=== PATIENT | female | born 1965 | race Caucasian/White ===

== ENCOUNTER 2016-05-22 11:43 | Inpatient (IN) ==
[2016-05-22 12:32] LABS: MANUAL DIFF NEEDED? NO
[2016-05-22 12:36] LABS: BASO% 0.3 % (0.0-0.8); EOS# 0.17 X1000 (0.0-0.7); EOS% 2.4 % (0.0-10.0); HEMATOCRIT 37.2 % (37.0-47.0); HEMOGLOBIN 12.2 g/dL (12.0-16.0); LYMPH# 2.95 X1000 (1.2-3.4); MCH 30.7 PG (27-31); MCHC 32.8 g/dL (33-37); MCV 93.7 FL (81-99); MONO# 0.42 X1000 (0.11-0.59); MONO% 5.8 % (1.7-9.3); NEUT% 50.5 % (42.2-75.2); PLT 193 X1000 (130-400); RBC 3.97 XMIL (4.2-5.4)
[2016-05-22 12:54] LABS: URINE CULTURE NEEDED? NO; URINE MICRO REVIEW NEEDED? NO; URINE SOURCE CATH
[2016-05-22 13:00] LABS: BILIRUBIN URINE NEGATIVE (NEGATIVE); BLOOD URINE NEGATIVE (NEGATIVE); COLOR YELLOW; GLUCOSE URINE NEGATIVE (NEGATIVE); LEUKOCYTES URINE NEGATIVE (NEGATIVE); NITRITE URINE NEGATIVE (NEGATIVE); PH URINE 5.5; PROTEIN URINE NEGATIVE (NEGATIVE); SP GRAVITY URINE 1.015; TURBIDITY URINE CLEAR (CLEAR); UROBILINOGEN URINE NORMAL (NORMAL)
[2016-05-22 13:01] LABS: UR EPITHELIAL CELLS <10 /HPF (<10); URINE BACTERIA NEGATIVE /HPF; URINE RBC <10 /HPF (<10); URINE WBC <10 /HPF (<10)
--- NOTE | 2016-05-22 13:16 | Diag Imaging Result Document ---
PROCEDURE NAME: HEAD W/O CONTRAST - 05/22/2016 CT BRAIN WITHOUT CONTRAST. COMPARISON: Compared to 10/15/2014. FINDINGS: There are postsurgical changes from a left frontoparietal craniotomy and there is encephalomalacia in the left frontoparietal region. No parenchymal hemorrhage. No epidural or subdural hematoma. No subarachnoid hemorrhage. Mild prominence to the right lateral ventricle likely related to the encephalomalacia on the left. No sinus opacification. No air-fluid levels. IMPRESSION: 1. No hemorrhage. 2. Left frontoparietal encephalomalacia. A preliminary report was given at 1:01 p.m. MTDD
[2016-05-22 13:24] LABS: UR AMPHETAMINES QUAL NONE DETECTED (NONE DETECT); UR BARBITUATES QUAL NONE DETECTED (NONE DETECT); UR BENZODIAZEPIN QUAL NONE DETECTED (NONE DETECT); UR CANNABINOIDS QUAL NONE DETECTED (NONE DETECT); UR COCAINE QUAL NONE DETECTED (NONE DETECT); UR METHADONE QUAL NONE DETECTED (NONE DETECT); UR OPIATES QUAL NONE DETECTED (NONE DETECT); UR OXYCODONE QUAL PRESUMPTIVE POSITIVE (NONE DETECT); UR PCP QUAL NONE DETECTED (NONE DETECT)
[2016-05-22 13:51] LABS: AGAP 14; ALBUMIN 3.5 g/dL (3.5-5.0); ALKALINE PHOSPHATASE 73 U/L (32-104); BUN 9 mg/dL (8-22); CALCIUM 8.8 mg/dL (8.8-10.2); CHLORIDE 99 mmol/L (98-107); COSMO 282; GOT 12 U/L (10-30); GPT 17 U/L (10-36); MAGNESIUM 1.7 mg/dL (1.5-2.7); POTASSIUM 3.7 mmol/L (3.5-5.1); SODIUM 138 mmol/L (136-145); TCO2 25 mmol/L (25-35); TOTAL BILIRUBIN 0.37 mg/dL (0.20-1.00); TOTAL PROTEIN 6.5 g/dL (6.3-8.3)
--- NOTE | 2016-05-22 13:51 | EKG Report ---
Test Performed on : 05/22/2016 11:48:39 AM Test Reason : ED. Not ordered in [place] Blood Pressure : / mmHG Vent. Rate : 062 BPM Atrial Rate : 062 BPM P-R Int : 156 ms QRS Dur : 092 ms QT Int : 438 ms P-R-T Axes : 062 031 -05 degrees QTc Int : 444 ms Normal sinus rhythm. Normal ECG No previous ECGs available Unconfirmed Result
[2016-05-22] MEDS ORDERED: KEPPRA 1,000 MG in NS 100 ML IV ONE (14:36)
--- NOTE | 2016-05-22 14:42 | PROVIDER DOCUMENTATION ---
This chart was entered by Lesvia Phelps Scribe, acting as scribe for Nataly Thomson Jr, MD. HPI-Neurological Disorder - General Stated Complaint: new onset seizure Time Seen by Provider: 05/22/16 11:47 Source: family (son) Allergies/Adverse Reactions: Patient Allergies Allergy/AdvReac Type Severity Reaction Status Date / Time meprobamate Allergy Unknown Verified 05/22/16 12:25 - History of Present Illness-Neuro Nature of Presenting Problem: Pt is 50 y/o F presents to the ED with new onset of seizure. 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 Pt's son states Pt jose up on L side of body. Pt's son states the symptoms lasted for 45 seconds. Pt's son states Pt had a massive brain bleed 1 year ago. Pt's son states bleed gave Pt R side weakness. Pt's son states it was a brain bleed and clot in brain. Headache Location: denies: frontal, temporal, occipital, parietal, global Severity: reports: moderate Onset/Duration: reports: 1/2 hour ago Timing: reports: gone now Context: reports: seizure activity Character of Altered Mental Status: reports: unresponsive, other (L side jose up ) Any recent trauma/injury?: reports: none New weakness or altered sensation location:: reports: [place] Cognitive Baseline: other (alert) Gait Baseline: uses a cane Associated Symptoms: reports: seizures. denies: short of breath, headache, decreased ability to walk or stand, fainting, dizziness, confusion, chest pain, neck/back pain, fatigue, fever/chills, insomnia, loss of consciousness, muscle spasms, nausea, numbness in legs/feet, paresthesia, diaphoretic, ringing in ears , sleepy, slurred speech, tingling in legs/feet, trouble walking, vomiting, vision changes, weakness Similar Symptoms Previously?: No Recently seen or treated by another doctor?: No - Seizure First time to have a seizure?: Yes Witnessed seizure?: Yes How many seizure episodes?: 1 Duration of episode? (mins): 0 (45 seconds ) Approximate time seizures began?: 11:30 Episode Frequency: no prior episodes Status Epilepticus: No Character of Seizure: reports: other (jose up on L side). denies: incontinent of urine, incontinent of stool, stopped breathing Post-ictal Symptoms: reports: confusion Seizure related injury: none Review of Systems - Adult - REVIEW OF SYSTEMS - ADULT Constitutional: reports: no symptoms reported Eyes: reports: no symptoms reported Ears, Nose, Mouth & Throat: reports: no symptoms reported Cardiovascular: reports: no symptoms reported Respiratory: reports: no symptoms reported Gastrointestinal: reports: no symptoms reported Genitourinary: reports: no symptoms reported Musculoskeletal: reports: no symptoms reported Integumentary: reports: no symptoms reported Neurological: reports: seizure. denies: dizziness/vertigo, headache/migraines Psychiatric: reports: no symptoms reported Endocrine: reports: no symptoms reported Hematologic/Lymphatic: reports: no symptoms reported Allergic/Immunologic: reports: no symptoms reported All Other Systems: Reviewed and Negative Past History - Adult - PAST MEDICAL HISTORY-ADULT Review of Records: reports: Nursing Assessment Review, Medications Reviewed, Social history reviewed & non-contributory. Major Childhood Illnesses: reports: denies history Cardiovascular: reports: denies history Respiratory: reports: denies history Gastrointestinal: reports: denies history Obstetrical/Gynecological: reports: denies history Genitourinary: reports: denies history Musculoskeletal: reports: denies history Neurological: reports: denies history Endocrine/Immune: reports: denies history Other Conditions: reports: denies history - PRIOR SURGERIES/PROCEDURES Surgical/Procedure History: reports: reviewed, not pertinent - IMMUNIZATION STATUS Childhood Immunizations: See Nurse Assessment Flu Vaccine: See Nurse Assessment - FAMILY HISTORY Family History: reviewed, not pertinent - SOCIAL HISTORY Smoking: denies Substance Use: denies Living Situation: family Physical Exam- Neurological - Physical Exam-Neuro Initial Vital Signs Reviewed: Yes General Appearance: appears well, alert, no apparent distress Eye Exam: bilateral eye: normal inspection, PERRL, EOMI HENMT: normocephalic/atraumatic, moist mucous membranes, normal ENT inspection, TMs normal, pharynx normal, other (top dentures) Head Injury: no evidence of injury Neck: non-tender, full range of motion, supple, normal inspection Respiratory: chest non-tender, lungs clear, normal breath sounds, no pleuratic chest pain, no respiratory distress, no accessory muscle use Cardiovascular: normal peripheral pulses, no edema, no gallop, no JVD, no murmur , bradycardia Abdominal Exam: normal bowel sounds, non tender, soft, no organomegaly, no pulsatile mass Lymphatic: no adenopathy Extremity: normal range of motion, non-tender, no calf tenderness, normal capillary refill, 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 Exam: normal hearing, abnormal speech (aphasia due to prior stroke) Coordination/Gait: abnormal gait Motor/Sensory: weak motor strength RUE Neurologic: grossly normal Integumentary: normal color, normal turgor, warm/dry Psych/Mental Status: normal mood/affect Progress - PLAN OF CARE/RESULTS Progress/Plan/Lab Results: Vital Signs - 8 hr 05/22/16 12:14 Temperature 97.3 F L Pulse Rate 57 L Respiratory Rate 18 Blood Pressure 130/67 O2 Sat by Pulse Oximetry 100 Laboratory Results - last 24 hr 05/22/16 05/22/16 05/22/16 12:10 12:35 12:35 WBC 7.19 RBC 3.97 L Hgb 12.2 Hct 37.2 MCV 93.7 MCH 30.7 MCHC 32.8 L RDW Std Deviation 12.9 Plt Count 193 MPV 11.0 H Neut % (Auto) 50.5 Lymph % (Auto) 41.0 Knox % (Auto) 5.8 Eos % (Auto) 2.4 Baso % (Auto) 0.3 Neut # (Auto) 3.63 Lymph # (Auto) 2.95 Knox # (Auto) 0.42 Eos # (Auto) 0.17 Baso # (Auto) 0.02 Sodium Potassium Chloride Carbon Dioxide Anion Gap BUN Creatinine Estimated GFR/1.73 m2 BUN/Creatinine Ratio Glucose Calculated Osmolality Calcium Magnesium Total Bilirubin AST ALT Alkaline Phosphatase Total Protein Albumin Globulin Albumin/Globulin Ratio Urine Source CATH Urine Color YELLOW Urine Turbidity CLEAR Urine pH 5.5 Ur Specific Mallie 1.015 Urine Protein NEGATIVE Ur Glucose (Stick) NEGATIVE Ur Ketones (Stick) NEGATIVE Urine Blood NEGATIVE Urine Nitrite NEGATIVE Urine Bilirubin NEGATIVE Urobilinogen Dipstick NORMAL Urine Leukocytes NEGATIVE Urine WBC (Auto) <10 Urine RBC (Auto) <10 U Epithel Cells (Auto) <10 Urine Bacteria (Auto) NEGATIVE Urine Opiates Screen NONE DETECTED Ur Oxycodone Screen PRESUMPTIVE POSITIVE A Ur Methadone, Qual NONE DETECTED Ur Barbiturates Screen NONE DETECTED Ur Phencyclidine Scrn NONE DETECTED Ur Amphetamines Screen NONE DETECTED U Benzodiazepines Scrn NONE DETECTED Urine Cocaine Screen NONE DETECTED U Cannabinoids Screen NONE DETECTED Plasma/Serum Ethyl Alc 05/22/16 05/22/16 13:04 13:04 WBC RBC Hgb Hct MCV MCH MCHC RDW Std Deviation Plt Count MPV Neut % (Auto) Lymph % (Auto) Knox % (Auto) Eos % (Auto) Baso % (Auto) Neut # (Auto) Lymph # (Auto) Knox # (Auto) Eos # (Auto) Baso # (Auto) Sodium 138 Potassium 3.7 Chloride 99 Carbon Dioxide 25 Anion Gap 14 BUN 9 Creatinine 0.7 Estimated GFR/1.73 m2 > 60 BUN/Creatinine Ratio 13 Glucose 230 H Calculated Osmolality 282 Calcium 8.8 Magnesium 1.7 Total Bilirubin 0.37 AST 12 ALT 17 Alkaline Phosphatase 73 Total Protein 6.5 Albumin 3.5 Globulin 3.0 Albumin/Globulin Ratio 1.2 Urine Source Urine Color Urine Turbidity Urine pH Ur Specific Mallie Urine Protein Ur Glucose (Stick) Ur Ketones (Stick) Urine Blood Urine Nitrite Urine Bilirubin Urobilinogen Dipstick Urine Leukocytes Urine WBC (Auto) Urine RBC (Auto) U Epithel Cells (Auto) Urine Bacteria (Auto) Urine Opiates Screen Ur Oxycodone Screen Ur Methadone, Qual Ur Barbiturates Screen Ur Phencyclidine Scrn Ur Amphetamines Screen U Benzodiazepines Scrn Urine Cocaine Screen U Cannabinoids Screen Plasma/Serum Ethyl Alc Orders Category Date Time Status Finger Stick Blood Sugar (ED) DIRECTED Care 05/22/16 11:47 Active Notify MD if DIRECTED Care 05/22/16 11:47 Active Saline Loc DIRECTED Care 05/22/16 11:47 Active HEAD W/O CONTRAST [CT] Stat Exams 05/22/16 11:49 Completed ALCOHOL BLOOD Stat Lab 05/22/16 13:04 Completed CBC WITH ELECTRONIC DIFF [HEME] Stat Lab 05/22/16 12:10 Completed COMPREHENSIVE METABOLIC PANEL [CHEM] Stat Lab 05/22/16 13:04 Completed MAGNESIUM [CHEM] Stat Lab 05/22/16 13:04 Completed URINALYSIS W/POSS RFLX CULT [URINALYSIS] Stat Lab 05/22/16 12:35 Completed URINE DRUG SCREEN Stat Lab 05/22/16 12:35 Completed Pulse Oximetry Stat Oth 05/22/16 11:47 Active EKG [EKG] Stat Ther 05/22/16 11:48 Draft Result Diagrams: 05/22/16 12:10 05/22/16 13:04 - EKG 1 Time of EKG reading by physician:: 11:48 EKG Read and Signed by:: Nataly Thomson Jr EKG Interpretation (*Must complete 3 of following elements*): Normal Rate: 62 Rhythm: normal sinus rhythm Comments: normal ECG - CT/MRI 1 CT Study: Head Impression: Abnormal CT Results: no blood. left encephalomalacia - CONSULTS/PCP/HOSPITALIST Notification #1 *Consult/PCP/Hospitalist*: Dr. Shell Time Discussed: 14:31 Consult Disposition: Will see in ED, Admit Departure - Departure Time of Disposition Decision: 14:30 DIAGNOSIS: New onset seizure Disposition: ADMITTED INPATIENT 09 Certified Medical Emergency: Emergent Condition: Good Referrals and Follow-Ups: Daja Temple CRNP [Primary Care Provider] - This chart was documented by the indicated scribe, (Lesvia Phelps Scribe) and accurately reflects the services I performed and decisions made by Berto niño Dewight X. Jr, MD, as attested by the provider's signature.
--- NOTE | 2016-05-22 15:36 | HISTORY AND PHYSICAL ---
HISTORY OF PRESENT ILLNESS: This is a 50-year-old, white female, who apparently had a seizure this morning witnessed by her son. It sounds like she was balled up with loss of consciousness, tonic-clonic activity. She has never had this before but she does have a significant history 1 year ago she had a hemorrhagic stroke I think in the left frontal parietal area. She did get surgical drainage I think with a bolt and she has right-sided paresis. She also has expressive dysphagia that has been fairly stable. She has a history diabetes mellitus type 2. Osteoarthritis and hypertension and I am assuming hypercholesterolemia. She did get a craniotomy and she has had a before. HOME MEDICATIONS: Lexapro, hydrochlorothiazide, metformin, Norvasc, Keppra 500 mg twice a day, taken off Robaxin and Zanaflex. She is on Neurontin and Lipitor. SOCIAL HISTORY: Negative for tobacco, alcohol, and no illicit drugs. She is . Lives with her . Four children. CT of the head, no hemorrhage. Left frontoparietal encephalomalacia. REVIEW OF SYSTEMS: Taken from the family, no real change in her weight or p.o. intake. No change in vision.Respiratory: No increased work of breathing or dyspnea. Cardiovascular: No chest pain or tachy palpitation. GI: Unremarkable. : Unremarkable. Musculoskeletal/Neurologic: No significant complaints other than reported past history of right-sided hemiparesis, status post left frontoparietal bleed requiring craniotomy. PHYSICAL EXAMINATION: VITAL SIGNS: Temperature 97.3 degrees, pulse 68, respirations 18, blood pressure 130/67. HEENT: Pupils are equal and round. CVP less than 6 cm. LUNGS: Clear in all lung pate. CARDIOVASCULAR: Regular rate without murmur or S3. ABDOMEN: Soft. SKIN: Warm and dry. LUNGS: Clear in all lung pate. CARDIOVASCULAR: Regular rhythm and rate without murmur or S3. ABDOMEN: Soft. EXTREMITIES: The right arm and leg with poor strength, not able to raise up her arm. 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 No facial droop. She does have trouble formulating her words, expressive aphasia. LABORATORY DATA: White blood cell count 7190, hematocrit 37, platelet count 193,000. Electrolytes: Sodium 138, potassium 3.7, chloride 99, bicarb 25, BUN 9, creatinine 0.7, blood sugar 230, calcium 8.8, albumin 3.5, urine presumptive positive for oxycodone. Negative for opiates, methadone, barbiturates, phencyclidine, amphetamines, benzodiazepines, cocaine, cannabinoids and ethanol. Urinalysis unremarkable. CT of the head with left frontoparietal encephalomalacia. ASSESSMENT AND PLAN: 1. New onset seizure in the face of previous left frontoparietal bleed. She is already on some maintenance Keppra 500 mg twice a day. We are going to increase the Keppra to 750 twice a day. We will check a Keppra level but they are pretty adamant that they have missed any medications. I do not see any new change in her medications. 2. Diabetes mellitus type 2. We will check pattern sugars. Put her on sliding scale. 3. History of hypertension. Blood pressures currently in the emergency room look good. It was 130/67 with a pulse of 57 and 68. 4. Osteoarthritis. Aware. 5. We will give her a little bit of fluid with normal saline 85 mL an hour. I do not see any metabolic abnormality. Magnesium was checked. It was 1.7. Potassium is 3.7, sodium 138. I really do not see any electrolyte abnormalities. We will check T4 and TSH. We will follow up electrolytes again tomorrow. Put her on a personnel monitor. cc: Behzad Shell MD
[2016-05-22] MEDS ORDERED: ZOFRAN IV PRN (16:10)
[2016-05-22] MEDS ORDERED: ATIVAN IV PRN (16:10)
[2016-05-22] MEDS ORDERED: TYLENOL PO PRN (16:10)
[2016-05-22] MEDS: HUMULIN R SUBQ SCH (17:13)
[2016-05-22] MEDS: ZANAFLEX PO SCH (17:14)
[2016-05-22] MEDS: NEURONTIN PO SCH (17:14)
[2016-05-22] MEDS: NS 1,000 ML IV SCH (17:15)
[2016-05-22] MEDS: OXY IR PO SCH (17:15)
[2016-05-22] MEDS: LAMISIL PO SCH (21:04)
[2016-05-22] MEDS: LEXAPRO PO SCH (21:04)
[2016-05-22] MEDS: LIPITOR PO SCH (21:04)
[2016-05-23] MEDS: HUMULIN R SUBQ SCH ×5 (00:27→22:52)
[2016-05-23] MEDS: KEPPRA IV SCH ×2 (02:35→15:22)
[2016-05-23] MEDS: NS IV SCH ×2 (02:35→15:22)
[2016-05-23] MEDS: NS 1,000 ML IV SCH ×2 (05:02→15:23)
[2016-05-23 06:45] LABS: MANUAL DIFF NEEDED? NO
[2016-05-23 06:52] LABS: BASO% 0.5 % (0.0-0.8); EOS# 0.14 X1000 (0.0-0.7); EOS% 2.4 % (0.0-10.0); HEMATOCRIT 34.9 % (37.0-47.0); HEMOGLOBIN 11.6 g/dL (12.0-16.0); LYMPH# 2.25 X1000 (1.2-3.4); LYMPH% 37.9 % (20.5-51.1); MCH 30.9 PG (27-31); MCHC 33.2 g/dL (33-37); MCV 92.8 FL (81-99); MONO# 0.37 X1000 (0.11-0.59); MONO% 6.2 % (1.7-9.3); PLT 176 X1000 (130-400); RBC 3.76 XMIL (4.2-5.4)
[2016-05-23 06:53] LABS: INR 0.98; PROTIME 10.3 Seconds (9.2-11.7); PTT 20.1 Seconds (22.0-36.0)
[2016-05-23 07:12] LABS: AGAP 15; ALBUMIN 3.1 g/dL (3.5-5.0); ALKALINE PHOSPHATASE 63 U/L (32-104); BUN 11 mg/dL (8-22); CALCIUM 8.5 mg/dL (8.8-10.2); CHLORIDE 104 mmol/L (98-107); COSMO 287; GOT 12 U/L (10-30); GPT 15 U/L (10-36); MAGNESIUM 1.7 mg/dL (1.5-2.7); POTASSIUM 3.7 mmol/L (3.5-5.1); SODIUM 143 mmol/L (136-145); TCO2 24 mmol/L (25-35); TOTAL BILIRUBIN 0.35 mg/dL (0.20-1.00); TOTAL PROTEIN 6.8 g/dL (6.3-8.3)
[2016-05-23 07:34] LABS: FREE T4 1.1 ng/dL (0.93-1.70)
[2016-05-23] MEDS: PRILOSEC PO SCH (08:27)
[2016-05-23] MEDS: OXY IR PO SCH ×2 (08:28→22:05)
[2016-05-23] MEDS: NEURONTIN PO SCH ×3 (08:28→22:55)
[2016-05-23] MEDS: ZANAFLEX PO SCH ×3 (08:28→22:04)
[2016-05-23] MEDS: HYDROCHLOROTHIAZIDE PO SCH (08:28)
[2016-05-23] MEDS: NORVASC PO SCH (08:28)
[2016-05-23] MEDS ORDERED: LIPITOR PO SCH (09:00)
[2016-05-23] MEDS ORDERED: LEXAPRO PO SCH (09:00)
[2016-05-23] MEDS ORDERED: LAMISIL PO SCH (09:00)
--- NOTE | 2016-05-23 12:08 | PROGRESS NOTE ---
DATE: 05/23/2016 SUBJECTIVE: Patient has had no recurrent seizures. She does have some excoriation underneath all her skin folds consistent with a fungal yeast infection. She has no complaints. OBJECTIVE: Vital Signs: Temperature is 98.1 degrees, heart rate 87, respiratory rate 12, blood pressure 142/42. Saturation 94% on room air. General: Ms. Carlson is a 50-year-old female. She is in no acute distress. Has difficulty with expressive aphasia. Cardiovascular: S1, S2. Regular rate and rhythm. No rubs, gallops, murmurs. Pulmonary: Clear to auscultation. Bilateral breath sounds. No accessory muscle use or work of breathing noted GI: Soft, nontender, nondistended. Positive bowel sounds x4. Neuro: Expressive aphasia. She can follow commands but she has residual right-sided weakness secondary to an old hemorrhagic stroke. Skin: Warm, dry, intact except for a underneath axillary and underneath the breast folds. LABORATORY DATA: White blood cells 5000, hemoglobin 11, hematocrit 34, platelet count 176,000. Sodium was 43, potassium 3.7, BUN 11, creatinine 0.7. Glucose 151. Calcium 8.5, magnesium 1.7. Liver enzymes negative. B12 418. Folate is low at 5.4. TSH 4.11, free T4 is 1.10. IMAGING: Head CT from yesterday, no hemorrhage, left frontoparietal encephalomalacia. ASSESSMENT AND PLAN: 1. A new onset seizure. The 1st that she has had since her frontoparietal bleed a year ago. At home she takes Keppra 500 twice a day. She will have a Keppra level sent for levels evaluated and she was given 1000 mg IV bolus loading dose in the ER and continued on Keppra 750 twice a day. There has been no more seizure activity since admission. We will continue to monitor. 2. Diabetes mellitus type 2. Sliding scale insulin. Pattern blood glucoses. 3. Hypertension. Stable. 4. Osteoarthritis. 5. Fungal yeast skin infection underneath the skin folds. Will do InterDry cloth, Nystatin powder and Diflucan. 6. Folic acid deficiency. Will start on folic acid. Dictated by JAREK Nguyen for Behzad Shell MD cc: JAREK Nguyen MD
[2016-05-23] MEDS: MYCOSTATIN POWDER TOP SCH ×2 (12:11→22:54)
[2016-05-23] MEDS: DIFLUCAN 200 MG/NS 200 MG/100 ML IVPB IV SCH (12:11)
[2016-05-23] MEDS: LAMISIL PO SCH (22:04)
[2016-05-23] MEDS: LEXAPRO PO SCH (22:05)
[2016-05-23] MEDS: FOLIC ACID PO SCH (22:05)
[2016-05-23] MEDS: LIPITOR PO SCH (22:05)
[2016-05-24] MEDS: NS IV SCH (02:25)
[2016-05-24] MEDS: NS 1,000 ML IV SCH ×2 (02:25→07:24)
[2016-05-24] MEDS: KEPPRA IV SCH (02:25)
[2016-05-24] MEDS: HUMULIN R SUBQ SCH ×2 (06:29→11:28)
[2016-05-24 07:23] LABS: MANUAL DIFF NEEDED? NO
[2016-05-24 07:26] LABS: BASO% 0.4 % (0.0-0.8); EOS# 0.12 X1000 (0.0-0.7); EOS% 1.6 % (0.0-10.0); HEMATOCRIT 34.5 % (37.0-47.0); HEMOGLOBIN 11.5 g/dL (12.0-16.0); LYMPH# 3.04 X1000 (1.2-3.4); LYMPH% 41.4 % (20.5-51.1); MCHC 33.3 g/dL (33-37); MONO# 0.48 X1000 (0.11-0.59); MONO% 6.5 % (1.7-9.3); MPV 10.6 FL (7.4-10.4); NEUT% 50.1 % (42.2-75.2); PLT 187 X1000 (130-400); RBC 3.71 XMIL (4.2-5.4)
[2016-05-24 07:51] LABS: AGAP 11; ALBUMIN 3.2 g/dL (3.5-5.0); ALKALINE PHOSPHATASE 68 U/L (32-104); BUN 13 mg/dL (8-22); CALCIUM 8.5 mg/dL (8.8-10.2); CHLORIDE 104 mmol/L (98-107); COSMO 283; GOT 11 U/L (10-30); GPT 14 U/L (10-36); MAGNESIUM 1.8 mg/dL (1.5-2.7); POTASSIUM 3.8 mmol/L (3.5-5.1); SODIUM 140 mmol/L (136-145); TCO2 25 mmol/L (25-35); TOTAL BILIRUBIN 0.49 mg/dL (0.20-1.00)
[2016-05-24 08:35] VITALS: BP 118/55
[2016-05-24] MEDS: ZANAFLEX PO SCH ×2 (09:40→15:03)
[2016-05-24] MEDS: FOLIC ACID PO SCH (09:40)
[2016-05-24] MEDS: NORVASC PO SCH (09:40)
[2016-05-24] MEDS: PRILOSEC PO SCH (09:40)
[2016-05-24] MEDS: MYCOSTATIN POWDER TOP SCH (09:40)
[2016-05-24] MEDS: OXY IR PO SCH (09:40)
[2016-05-24] MEDS: HYDROCHLOROTHIAZIDE PO SCH (09:40)
[2016-05-24] MEDS: NEURONTIN PO SCH ×2 (09:40→15:03)
[2016-05-24] MEDS: DIFLUCAN 200 MG/NS 200 MG/100 ML IVPB IV SCH (11:28)
--- NOTE | 2016-05-24 20:40 | DISCHARGE SUMMARY ---
ADMISSION DATE: 05/22/2016 DISCHARGE DATE: 05/24/2016 HOSPITAL COURSE: A 50-year-old, who presented with a seizure that morning witnessed by her son, I believe. She was balled up and appeared to have tonic-clonic activity, loss of consciousness. She had no trauma to her mouth or tongue and no incontinence of bowel or bladder. She has not had this before. She had a hemorrhagic stroke about a year ago in the frontoparietal area and she has been on Keppra since that time at 500 mg twice a day. She has been taking her doses regularly. We increased the Keppra to 750 twice a day. Continued her home medication which is Lexapro, hydrochlorothiazide, metformin, Norvasc, and she took Robaxin, Neurontin and Lipitor. She had no further seizures, was awake and alert, was eating well. [place] comfortable. CT of the head just showed left frontoparietal encephalomalacia, really no change or new acute process. [place] she could go home on 05/24/2016. DISCHARGE MEDICATIONS: She will go home on Keppra 750 mg twice a day, Lexapro 10 mg a day, Lipitor 10 mg a day, Norvasc 10 mg a day. We gave her some fluconazole and she had some irritation in the intertriginous areas in her arms and had her on some nystatin powder as well. Folic acid 1 mg b.i.d. Neurontin 300 mg t.i.d. Hydrochlorothiazide 25 mg a day. We will give her some of the nystatin powder. She takes OxyContin IR. I would that down to 50 mg twice a day. She was on 4 times a day, but recommend we cut that down. She is on Lamisil 250 mg at bedtime. She take Zanaflex as needed t.i.d. We will set her up to go home. Follow up with her primary care. cc: Behzad Shell MD
== END 2016-05-24 15:24 | disposition home or self-care (01) ==
LOC: ED 11:43 → MERGE 15:20 → 3N 15:20
PROVIDERS: ATTEND Emergency Medicine